=== PATIENT | female | born 1980 | race Hispanic/Latino ===

== ENCOUNTER 2016-06-06 10:20 | Inpatient (IN) | payer OTHER ==
[~2016-06-06] VITALS: Ht 149.9 cm; Wt 65.3 kg
[2016-06-06 11:03] VITALS: BP 133/84
[2016-06-06] MEDS ORDERED: PRENATAL MULTI1 EAC2 PO (11:05)
[2016-06-06] MEDS ORDERED: PROAIR HFA8.5 GM INH (11:09)
[2016-06-06] MEDS ORDERED: SYMBICORT 16010.2 GM INH (11:12)
[2016-06-06 11:13] LABS: ABSOLUTE BASOPHIL COUNT 0 /CUMM (0.0-0.2); ABSOLUTE EOSINOPHIL COUNT 0.5 /CUMM (0.0-0.7); ABSOLUTE GRANULOCYTE CT 9.8 /CUMM (1.4-6.5); ABSOLUTE LYMPH COUNT 2.1 /CUMM (1.2-3.4); ABSOLUTE MONOCYTE COUNT 0.9 /CUMM (0.10-0.60); BASOPHIL % 0.3 % (0.0-2.0); EOSINOPHIL % 3.8 % (0-5); GRANULOCYTE % 73.2 % (42.2-75.2); HEMATOCRIT 36.6 % (37-47); MEAN CORPUSCULAR HGB 29.8 PG (27.0-31.0); MEAN CORPUSCULAR HGB CONC 33.4 G/DL (33.0-37.0); MEAN CORPUSCULAR VOLUME 89.4 FL (81.0-99.0); MEAN PLATELET VOLUME 9.8 FL (7.4-10.4); PLATELET COUNT 204 /CUMM (130-400); RBC DISTRIBUTION WIDTH 15.2 % (11.5-14.5); RED BLOOD CELL CT 4.09 /CUMM (4.20-5.40); WHITE BLOOD CELL COUNT 13.4 /CUMM (4.8-10.8)
--- NOTE | 2016-06-06 11:44 | History & Physical ---
General Information and HPI MD Statement: I have seen and personally examined TERI LIEBERMAN and documented this H&P. The patient is a 36 year old female at [39] weeks and [2] days gestation who presented with a chief complaint of [SROM]. Source of Information: police History of Present Illness: 36YO EDC 06/11/16 WITH SROM 10AM. H/O ASTHMA. CARE WITH DR.RONAN VASQUEZ AND UNREMARKABLE. PREVIOUS SVDX3. 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 EENTM: Reports: no symptoms. Cardiovascular: Reports: no symptoms. Respiratory: Reports: no symptoms. GI: Reports: no symptoms. Genitourinary: Reports: no symptoms. Musculoskeletal: Reports: no symptoms. Skin: Reports: no symptoms. Neurological/Psychological: Reports: no symptoms. Hematologic/Endocrine: Reports: no symptoms. Immunologic/Allergic: Reports: no symptoms. All Other Systems: Reviewed and Negative Exam & Diagnostic Data Last 24 Hrs of Vital Signs/I&O Vital Signs Date Time Temp Pulse Resp B/P Pulse O2 O2 Flow FiO2 Ox Delivery Rate 06/06 1103 133/84 Intake & Output 06/06 1600 06/06 0800 06/06 0000 Intake Total Output Total Balance Patient 144 lb Weight Obstetric Exam Wgt Gained During : 35 Pelvimetry: CREAM BUYER Dilation (cm): 4 Effacement (%): 100 Station: 0 Membranes: SROM Fluid: clear Fundal Height (cm): 40 Multiple Gestation? No Contractions: Q2 Infant #1 - FHR Baseline: 125 Category: 1 Estimated Weight: 7 Presentation: CEPHALIC Patient for Induction? No Labs Blood Type & Rh: AB+ Antibody Screen: NEG Hct/Hgb & Platelets #1: 39 Hct/Hgb & Platelets #2: Rubella: IMM VDRL #1: NR VDRL #2: NR HbsAg: NEG HIV #1: NEG HIV #2 NEG 1 Hr P 3 Hr P/150/137 Group B Strep: NEG Initial Ultrasound: WNL Anatomy Ultrasound: WNL Ultrasound for EFW: 6 Genetic Testing: NEG Assessment/Plan As Ranked By This Provider Problem List: 1. Core Measures/Miscellaneous Venous Thromboembolism VTE Risk Factors: / VTE Contraindications: No Contraindications VTE Diagnosis: No Beta Sivan Is Beta Sivan a Home Med? No Antibiotics Is Patient on Antibiotics? No
--- NOTE | 2016-06-06 12:55 | Labor & Delivery Summary ---
Delivery Summary Vaginal Delivery: Vaginal: vertex : : vacuum Episiotomy/Lacerations: Episiotomy/Lacerations: none Placenta: Placenta: abnormal, true knot Anesthesia: none Baby's Weight: 6-10 Apgars - 1 Min: 9 Apgars - 5 Min: 9 Additional Comments: VACUUM ASSISTED DELIVERY FOR SEVERE VARIABLE
[2016-06-07 07:07] LABS: ABSOLUTE GRANULOCYTE CT 11.8 /CUMM (1.4-6.5); RED BLOOD CELL CT 3.51 /CUMM (4.20-5.40)
[2016-06-07 07:12] LABS: ABSOLUTE BASOPHIL COUNT 0 /CUMM (0.0-0.2); ABSOLUTE EOSINOPHIL COUNT 0.3 /CUMM (0.0-0.7); BASOPHIL % 0.2 % (0.0-2.0); EOSINOPHIL % 2.2 % (0-5); GRANULOCYTE % 77.7 % (42.2-75.2); HEMATOCRIT 31.7 % (37-47); MEAN CORPUSCULAR HGB 29.9 PG (27.0-31.0); MEAN CORPUSCULAR HGB CONC 33.1 G/DL (33.0-37.0); MEAN CORPUSCULAR VOLUME 90.2 FL (81.0-99.0); MEAN PLATELET VOLUME 9.7 FL (7.4-10.4); PLATELET COUNT 164 /CUMM (130-400); RBC DISTRIBUTION WIDTH 15.2 % (11.5-14.5); WHITE BLOOD CELL COUNT 15.2 /CUMM (4.8-10.8)
--- NOTE | 2016-06-07 18:15 | PN- Post Delivery/GYN ---
Subjective Subjective: NO COMPLAINTS Objective Last 24 Hrs of Vital Signs/I&O PER CHART Physical Exam: VSS ABD SOFT NT FUNDUS FIRM NT LOCHIA MINIMAL EXT -EDEMA Assessment/Plan Assessment/Plan ASSSESSS/P PLAN CONT PPC
[2016-06-08] MEDS ORDERED: PERCOCET 5-3251 EACH PO (07:40)
[2016-06-08] MEDS ORDERED: IBUPROFEN800 M1 PO (07:40)
[2016-06-08] MEDS ORDERED: DOCUSATE SODIU100 M3 PO (07:40)
== END 2016-06-08 10:40 | DRG 775 ==
LOC: CBCO 10:20 → GNO 10:32
PROVIDERS: Obstetrics & Gynecology; ADMIT Specialist
PROC: 10D07Z6 Extraction of Products of Conception, Vacuum, Via Natural or Artificial Opening (ICD-10-PCS; principal; 2016-06-06)
DX: O76 Abnormality in fetal heart rate and rhythm complicating labor and delivery (principal); O69.2XX0 Labor and delivery complicated by other cord entanglement, with compression, not applicable or unspecified; Z3A.39 39 weeks gestation of pregnancy; Z37.0 Single live birth
CPT/HCPCS: GNOS; 36415; 81001; 84112; 88307; J7120